=== PATIENT | female | born 1950 | race African-American/Black ===

== ENCOUNTER → 2019-12-18 | Outpatient (CLI) | payer OTHER ==
[~2019-12-18] MED LIST: ATEN1TAB42 PO; GLYB5TAB7 PO; LISI-186 PO; LOVA20TA2 PO
== END | disposition home or self-care (01) ==
LOC: MRI 08:39
PROVIDERS: ATTEND Family Medicine Adult Medicine
DX: S39.012D Strain of muscle, fascia and tendon of lower back, subsequent encounter (principal); X58.XXXD Exposure to other specified factors, subsequent encounter
CPT/HCPCS: 72148

== ENCOUNTER 2021-07-26 01:49 | Inpatient (IN) | payer MEDICARE, OTHER ==
[~2021-07-26] VITALS: Ht 165.1 cm; Wt 86.2 kg
[2021-07-26] MEDS ORDERED: LABETALOL 5MG/ML SYR 20 MG/4 ML SYRINGE IV ONE (02:15)
[2021-07-26 02:52] LABS: CHLORIDE 91 mEq/L (98-107)
[2021-07-26 02:54] LABS: HEMATOCRIT. 37.3 % (36.0-48.0); HEMOGLOBIN. 10.8 g/dL (12.0-16.0); MEAN CORPUSCULAR VOLUME 93.1 fL (81.0-99.0); MEAN PLATELET VOLUME 9.3 fl (7.4-10.4); PLATELET 269 x1000/uL (130-400); RED BLOOD CELL COUNT 4.01 mill/uL (4.2-5.4); RED CELL DISTRIBUTION WIDTH 15.8 % (11.6-14.6)
[2021-07-26 02:57] LABS: ETHANOL BLOOD < 10 mg/dL
[2021-07-26] MEDS ORDERED: INSULIN REGULAR (DRIP) 100 UNITS in SODIUM CHLORIDE 0.9% 99 ML IV ONE (03:15)
[2021-07-26] MEDS ORDERED: INSULIN REGULAR (HUMULIN R) 300UNITS/3ML VIAL IV ONE (03:15)
[2021-07-26] MEDS ORDERED: SODIUM CHLORIDE 0.9% 1,000 ML IV ONE ×3 (03:15→06:00)
[2021-07-26] MEDS ORDERED: IOHEXOL-350 100 ML BOTTLE ONE (03:29)
[2021-07-26] MEDS ORDERED: INSULIN REGULAR (DRIP) 100 UNITS in SODIUM CHLORIDE 0.9% 99 ML IV NR (03:30)
[2021-07-26] MEDS ORDERED: POTASSIUM CHLORIDE 20MEQ TABLET SR PO ONE (03:45)
[2021-07-26] MEDS ORDERED: LEVOFLOXACIN 750MG PREMIX 150 ML IV ONE (04:15)
[2021-07-26 04:20] LABS: CLARITY URINE CLEAR (CLEAR); COLOR URINE YELLOW (YELLOW); KETONES URINE NEGATIVE (NEGATIVE); LEUKOCYTE ESTERASE URINE NEGATIVE (NEGATIVE); NITRITE URINE NEGATIVE (NEGATIVE); OCCULT BLOOD URINE TRACE (NEGATIVE); PROTEIN URINE 4+ (NEGATIVE); UROBILINOGEN URINE 0.2 E.U./dL (0.2-1.0)
[2021-07-26 04:30] LABS: *AMPHETAMINES SCREEN URINE NEGATIVE (NEGATIVE); *BARBITURATES SCREEN URINE NEGATIVE (NEGATIVE); *BENZODIAZEPINES SCREEN URINE NEGATIVE (NEGATIVE); *COCAINE SCREEN URINE NEGATIVE (NEGATIVE); METHADONE URINE SCREEN NEGATIVE (NEGATIVE); OPIATES URINE SCREEN NEGATIVE (NEGATIVE)
[2021-07-26 04:30] LABS: PLATELET ESTIMATE NORMAL
[2021-07-26 04:31] LABS: CANNABINOID URINE SCREEN NEGATIVE (NEGATIVE); PHENCYCLIDINE URINE SCREEN NEGATIVE (NEGATIVE)
[2021-07-26] MEDS ORDERED: POTASSIUM CHLORIDE INJ 40 MEQ in DEXT 5% WATER 250 ML IV ONE (06:00)
[2021-07-26] MEDS ORDERED: KCL 20MEQ/100ML PREMIX 100 ML IV NR ×2 (06:30→08:30)
[2021-07-26] MEDS ORDERED: LIDOCAINE HCL 1% 20ML VIAL (Pyxis) INJ ONE (08:45)
[2021-07-26] MEDS ORDERED: SODIUM CHLORIDE 0.9% 1,000 ML IV SCH (09:30)
[2021-07-26] MEDS ORDERED: ONDANSETRON HCL 4MG/2ML INJ IV PRN (09:30)
[2021-07-26] MEDS ORDERED: VANCOMYCIN 1500MG in DEXTROSE 5% WATER 250ML IV SCH (11:00)
[2021-07-26] MEDS: ASPIRIN 81MG TABLET PO SCH (12:11)
[2021-07-26] MEDS: ENOXAPARIN 30MG/0.3ML SYR SUBCUT SCH (12:12)
[2021-07-26] MEDS: AMLODIPINE 10MG TABLET PO SCH (12:12)
[2021-07-26] MEDS ORDERED: DEXTROSE 50% WATER 50ML SYRINGE IV PRN (12:45)
[2021-07-26] MEDS ORDERED: LABETALOL 5MG/ML SYR 20 MG/4 ML SYRINGE IV NR (13:00)
[2021-07-26] MEDS: BLOOD SUGAR DIAGNOSTIC STRIP TEST SCH ×3 (13:49→23:55)
[2021-07-26] MEDS ORDERED: INSULIN GLARGINE UD 100 UNITS/ML SYR SUBCUT NR (14:00)
[2021-07-26] MEDS: INSULIN LISPRO 100 UNITS/ML SUBCUT SCH ×2 (14:00→18:20)
[2021-07-26] MEDS ORDERED: ASPIRIN 300MG SUPP PR ONE (15:00)
[2021-07-26] MEDS: ACETAMINOPHEN 325MG TABLET PO PRN (16:05)
[2021-07-26] MEDS ORDERED: INSULIN GLARGINE UD 100 UNITS/ML SYR SUBCUT SCH (22:00)
[2021-07-27] MEDS: ACETAMINOPHEN 325MG TABLET PO PRN
[2021-07-27] MEDS: INSULIN LISPRO 100 UNITS/ML SUBCUT SCH ×5 (00:07→21:00)
[2021-07-27 05:22] LABS: HEMATOCRIT. 31.9 % (36.0-48.0); MEAN CORPUSCULAR VOLUME 86.4 fL (81.0-99.0); MEAN PLATELET VOLUME 9.3 fl (7.4-10.4); PLATELET 262 x1000/uL (130-400); RED BLOOD CELL COUNT 3.69 mill/uL (4.2-5.4); RED CELL DISTRIBUTION WIDTH 15.1 % (11.6-14.6)
[2021-07-27] MEDS: BLOOD SUGAR DIAGNOSTIC STRIP TEST SCH ×4 (06:46→21:18)
[2021-07-27] MEDS: AMLODIPINE 10MG TABLET PO SCH (09:20)
[2021-07-27] MEDS: ASPIRIN 81MG TABLET PO SCH (09:20)
[2021-07-27] MEDS: ENOXAPARIN 30MG/0.3ML SYR SUBCUT SCH (09:21)
[2021-07-27 10:55] LABS: PLATELET ESTIMATE NORMAL
[2021-07-27] MEDS ORDERED: VANCOMYCIN 1250MG in DEXTROSE 5% WATER 250ML IV SCH (16:00)
[2021-07-27 21:00] VITALS: BP 154/81
[2021-07-27] MEDS ORDERED: METO-539 PO (22:11)
[2021-07-27] MEDS ORDERED: CALC0.253 PO (22:11)
[2021-07-27] MEDS ORDERED: AMLO5TAB88 PO (22:11)
[2021-07-27] MEDS ORDERED: ATOR-2 PO (22:11)
[2021-07-27] MEDS: INSULIN GLARGINE UD 100 UNITS/ML SYR SUBCUT SCH (22:20)
[2021-07-28] VITALS: BP 117/65
[2021-07-28 04:00] VITALS: BP 115/64
[2021-07-28] MEDS ORDERED: AZTREONAM 1 G in DEXTROSE 5% WATER 50 ML IV SCH (04:00)
[2021-07-28] MEDS: BLOOD SUGAR DIAGNOSTIC STRIP TEST SCH ×4 (05:49→21:00)
[2021-07-28] MEDS: INSULIN LISPRO 100 UNITS/ML SUBCUT SCH ×4 (05:49→22:00)
[2021-07-28] MEDS ORDERED: LEVOFLOXACIN 500MG PREMIX 100 ML IV SCH ×2 (06:00)
[2021-07-28 07:53] LABS: HEMATOCRIT. 28.1 % (36.0-48.0); HEMOGLOBIN. 8.8 g/dL (12.0-16.0); MEAN CORPUSCULAR HEMOGLOBIN 27.1 pg (28.0-32.0); MEAN CORPUSCULAR VOLUME 86.2 fL (81.0-99.0); MEAN PLATELET VOLUME 8.7 fl (7.4-10.4); PLATELET 266 x1000/uL (130-400); RED BLOOD CELL COUNT 3.25 mill/uL (4.2-5.4); RED CELL DISTRIBUTION WIDTH 15.6 % (11.6-14.6)
[2021-07-28 08:00] VITALS: BP 121/43
[2021-07-28 08:35] LABS: PHOSPHORUS 3.4 mg/dL (2.5-4.9)
[2021-07-28] MEDS: AMLODIPINE 10MG TABLET PO SCH (09:00)
[2021-07-28] MEDS ORDERED: LACTULOSE 20G/30ML UDC PO PRN (10:15)
[2021-07-28] MEDS: DOCUSATE SODIUM 250MG CAPSULE PO SCH (10:35)
[2021-07-28] MEDS: ENOXAPARIN 30MG/0.3ML SYR SUBCUT SCH (10:35)
[2021-07-28] MEDS: INSULIN GLARGINE UD 100 UNITS/ML SYR SUBCUT SCH ×2 (10:36→22:00)
[2021-07-28] MEDS: ASPIRIN 81MG TABLET PO SCH (10:36)
[2021-07-28 12:00] VITALS: BP 118/61
[2021-07-28 12:17] LABS: HEPATITIS B SURFACE ANTIGEN NEGATIVE
[2021-07-28 16:00] VITALS: BP 154/74
[2021-07-28 20:00] VITALS: BP 143/70
[2021-07-28] MEDS: EPOETIN ALFA-EPBX 4,000 UNIT/ML VIAL SUBCUT SCH (21:57)
[2021-07-29] VITALS: BP 123/51
[2021-07-29 04:00] VITALS: BP 122/68
[2021-07-29] MEDS ORDERED: AZTREONAM 1 G in DEXTROSE 5% WATER 50 ML IV SCH (05:00)
[2021-07-29] MEDS: INSULIN LISPRO 100 UNITS/ML SUBCUT SCH ×4 (05:50→21:53)
[2021-07-29] MEDS: BLOOD SUGAR DIAGNOSTIC STRIP TEST SCH ×4 (05:50→21:48)
[2021-07-29 07:30] LABS: HEMATOCRIT. 28.7 % (36.0-48.0); HEMOGLOBIN. 9.1 g/dL (12.0-16.0); MEAN CORPUSCULAR HEMOGLOBIN 27.7 pg (28.0-32.0); MEAN CORPUSCULAR VOLUME 87.7 fL (81.0-99.0); MEAN PLATELET VOLUME 8.9 fl (7.4-10.4); PLATELET 338 x1000/uL (130-400); RED BLOOD CELL COUNT 3.27 mill/uL (4.2-5.4); RED CELL DISTRIBUTION WIDTH 15.9 % (11.6-14.6)
[2021-07-29 07:41] LABS: CHLORIDE 105 mEq/L (98-107)
[2021-07-29 07:56] LABS: PHOSPHORUS 3.2 mg/dL (2.5-4.9)
[2021-07-29 08:00] VITALS: BP 135/56
[2021-07-29] MEDS: DOCUSATE SODIUM 250MG CAPSULE PO SCH (09:00)
[2021-07-29] MEDS: ASPIRIN 81MG TABLET PO SCH (10:22)
[2021-07-29] MEDS: AMLODIPINE 10MG TABLET PO SCH (10:23)
[2021-07-29] MEDS: INSULIN GLARGINE UD 100 UNITS/ML SYR SUBCUT SCH ×2 (10:24→21:53)
[2021-07-29] MEDS: ENOXAPARIN 30MG/0.3ML SYR SUBCUT SCH (10:25)
[2021-07-29 12:00] VITALS: BP 155/67
[2021-07-29 15:45] LABS: PLATELET ESTIMATE NORMAL
[2021-07-29 16:00] VITALS: BP 148/67
[2021-07-29 20:00] VITALS: BP 134/64
[2021-07-30] VITALS: BP 122/64
[2021-07-30 04:00] VITALS: BP 138/84
[2021-07-30] MEDS: BLOOD SUGAR DIAGNOSTIC STRIP TEST SCH ×4 (06:06→21:00)
[2021-07-30] MEDS: INSULIN LISPRO 100 UNITS/ML SUBCUT SCH ×4 (06:06→22:38)
[2021-07-30 07:16] LABS: PLATELET ESTIMATE NORMAL
[2021-07-30 08:00] VITALS: BP 122/74
[2021-07-30] MEDS: DOCUSATE SODIUM 250MG CAPSULE PO SCH (09:00)
[2021-07-30] MEDS: ENOXAPARIN 30MG/0.3ML SYR SUBCUT SCH (10:17)
[2021-07-30] MEDS: AMLODIPINE 10MG TABLET PO SCH (10:18)
[2021-07-30] MEDS: INSULIN GLARGINE UD 100 UNITS/ML SYR SUBCUT SCH ×2 (10:18→22:39)
[2021-07-30] MEDS: ASPIRIN 81MG TABLET PO SCH (10:18)
[2021-07-30 11:49] LABS: HEMATOCRIT. 25.2 % (36.0-48.0); HEMOGLOBIN. 7.9 g/dL (12.0-16.0); MEAN CORPUSCULAR HEMOGLOBIN 27.3 pg (28.0-32.0); MEAN CORPUSCULAR VOLUME 87.5 fL (81.0-99.0); MEAN PLATELET VOLUME 8.3 fl (7.4-10.4); PLATELET 261 x1000/uL (130-400); RED BLOOD CELL COUNT 2.88 mill/uL (4.2-5.4); RED CELL DISTRIBUTION WIDTH 15.8 % (11.6-14.6)
[2021-07-30 12:00] VITALS: BP 154/68
[2021-07-30 12:17] LABS: PHOSPHORUS 2.8 mg/dL (2.5-4.9)
[2021-07-30 16:00] VITALS: BP 143/73
[2021-07-30] MEDS: CLOPIDOGREL 75MG TABLET PO SCH (17:15)
[2021-07-30 20:00] VITALS: BP 144/72
[2021-07-30] MEDS: ACETAMINOPHEN 325MG TABLET PO PRN (22:36)
[2021-07-30] MEDS: EPOETIN ALFA-EPBX 4,000 UNIT/ML VIAL SUBCUT SCH (22:42)
[2021-07-31] VITALS: BP_SYST 113; BP_SYST 115; BP_DIAS 54; BP_DIAS 66
[2021-07-31 02:05] LABS: HEPATITIS B SURFACE ANTIGEN NEGATIVE
[2021-07-31 04:00] VITALS: BP 141/69
[2021-07-31 07:11] LABS: PLATELET ESTIMATE NORMAL
[2021-07-31] MEDS: INSULIN LISPRO 100 UNITS/ML SUBCUT SCH ×3 (07:40→17:38)
[2021-07-31 08:00] VITALS: BP 144/88
[2021-07-31] MEDS: BLOOD SUGAR DIAGNOSTIC STRIP TEST SCH ×3 (08:01→17:38)
[2021-07-31] MEDS: DOCUSATE SODIUM 250MG CAPSULE PO SCH (09:00)
[2021-07-31] MEDS ORDERED: TRAMADOL 50MG TABLET PO PRN (10:00)
[2021-07-31] MEDS: AMLODIPINE 10MG TABLET PO SCH (10:32)
[2021-07-31] MEDS: CLOPIDOGREL 75MG TABLET PO SCH (10:33)
[2021-07-31] MEDS: INSULIN GLARGINE UD 100 UNITS/ML SYR SUBCUT SCH (10:35)
[2021-07-31 12:00] VITALS: BP 140/64
[2021-07-31 16:00] VITALS: BP 132/67
[2021-07-31] MEDS ORDERED: HEPARIN SODIUM 1,000 UNIT/1ML VIAL IV NR (16:00)
[2021-07-31 17:14] VITALS: BP 132/67
== END 2021-07-31 19:50 | disposition home or self-care (01) | DRG 871 ==
LOC: ER 01:49 → EDBEDREQ 04:05 → EDBEDREQTM 04:05 → EDBEDREQSVC 04:05 → MICUSO 07-27 02:31 → 8WST 07-27 19:55
PROVIDERS: ADMIT Internal Medicine Pulmonary Disease; ATTEND Internal Medicine Pulmonary Disease
PROC: 02HV33Z Insertion of Infusion Device into Superior Vena Cava, Percutaneous Approach (ICD-10-PCS; principal; 2021-07-26)
PROC: B548ZZA Ultrasonography of Superior Vena Cava, Guidance (ICD-10-PCS; 2021-07-26)
DX: A41.9 Sepsis, unspecified organism (principal); E43 Unspecified severe protein-calorie malnutrition; J18.9 Pneumonia, unspecified organism; N18.6 End stage renal disease; E87.1 Hypo-osmolality and hyponatremia; R47.01 Aphasia; N17.9 Acute kidney failure, unspecified; C91.10 Chronic lymphocytic leukemia of B-cell type not having achieved remission; I12.0 Hypertensive chronic kidney disease with stage 5 chronic kidney disease or end stage renal disease; D25.9 Leiomyoma of uterus, unspecified; D64.9 Anemia, unspecified; E11.22 Type 2 diabetes mellitus with diabetic chronic kidney disease; E11.65 Type 2 diabetes mellitus with hyperglycemia; E66.9 Obesity, unspecified; E78.5 Hyperlipidemia, unspecified; E87.8 Other disorders of electrolyte and fluid balance, not elsewhere classified; Z20.822 Contact with and (suspected) exposure to COVID-19; I25.10 Atherosclerotic heart disease of native coronary artery without angina pectoris; Z82.49 Family history of ischemic heart disease and other diseases of the circulatory system; Z83.3 Family history of diabetes mellitus; Z86.73 Personal history of transient ischemic attack (TIA), and cerebral infarction without residual deficits; Z90.710 Acquired absence of both cervix and uterus; Z95.1 Presence of aortocoronary bypass graft; Z99.2 Dependence on renal dialysis; Z88.0 Allergy status to penicillin; Z88.2 Allergy status to sulfonamides; Z91.011 Allergy to milk products; Z90.49 Acquired absence of other specified parts of digestive tract
CPT/HCPCS: 36415; 70496; 70498; 70551; 71045; 74176; 76937; 80048; 80053; 80202; 80305; 80320; 81003; 82962; 83735; 84100; 84484; 85025; 86705; 86709; 86803; 87340; 87426; 92610; 93005; 95816; 97161; 99291; C1725; J0885; J1644; J1650; J1815; J1956; J2405; J3370; J3480; J3490; J7030; J7040; J7050; J7060; Q9967; G0480